=== PATIENT | male | born 1950 | race American Indian/Alaskan Native ===

== ENCOUNTER 2017-04-30 00:28 | Emergency (ER) | payer MEDICARE ==
[2017-04-30 02:59] LABS: Bilirubin,Urine NEG (Negative); Blood,Urine LG (Negative); Ketones,Urine NEG (Negative); Leukocyte Esterase,Urine TR (Negative); Mucus,Urine 1+ /HPF; Nitrite,Urine NEG (Negative); Urobilinogen,Urine < 2.0 mg/dL (<2.0)
[2017-04-30 03:01] LABS: RBC,Urine > 182.0 /HPF (0.0-6.0)
--- NOTE | 2017-04-30 03:22 | Emergency Department Report ---
ED Male HPI - General Chief complaint: Abdominal Pain Stated complaint: URINARY RETENTION Time Seen by Provider: 04/30/17 03:16 Source: patient Mode of arrival: Ambulatory Limitations: No Limitations - History of Present Illness -: hour(s) (10) Location: abdomen (SUPRAPUBIC) Severity scale (0 -10): 4 Quality: aching, dull Consistency: constant Improves with: urination recent surgery (TURP) denies: fever, nausea/vomiting - Related Data Sexually active: Yes Home Medications Medication Instructions Recorded Confirmed Last Taken Amlodipine Besylate/Benazepril 1 each PO DAILY 04/21/17 04/23/17 04/23/17 09:00 [Amlodipine-Benazepril 10-20 mg] Rosuvastatin (Nf) [Crestor] 10 mg PO QHS 04/21/17 04/21/17 04/22/17 Previous Rx's Medication Instructions Recorded Last Taken Type Tamsulosin [Flomax] 0.4 mg PO DAILY #7 capsule 04/30/17 Unknown Rx Allergies Allergy/AdvReac Type Severity Reaction Status Date / Time latex Allergy blisters Verified 04/21/17 08:59 ED Review of Systems ROS: Stated complaint: URINARY RETENTION Other details as noted in HPI ED Past Medical Hx - Past Medical History Previous Medical History?: Yes Hx Hypertension: Yes () Hx Diabetes: Yes ("BOARDERLINE" - NO MEDS) Hx GERD: Yes Hx HIV: No Additional medical history: BPH, High cholesterol, Gastric Ulcer - Surgical History Past Surgical History?: Yes Additional Surgical History: TURP - Social History Smoking Status: Former Smoker Substance Use Type: None - Medications Home Medications: Home Medications Medication Instructions Recorded Confirmed Last Taken Type Amlodipine Besylate/Benazepril 1 each PO DAILY 04/21/17 04/23/17 04/23/17 09:00 History [Amlodipine-Benazepril 10-20 mg] Rosuvastatin (Nf) [Crestor] 10 mg PO QHS 04/21/17 04/21/17 04/22/17 History Tamsulosin [Flomax] 0.4 mg PO DAILY #7 capsule 04/30/17 Unknown Rx ED Physical Exam - General Limitations: No Limitations General appearance: alert, in distress - Head Head exam: Present: atraumatic, normocephalic - Eye Eye exam: Present: normal appearance, EOMI - ENT ENT exam: Present: mucous membranes moist - Neck Neck exam: Present: normal inspection - Respiratory Respiratory exam: Present: normal lung sounds bilaterally. Absent: respiratory distress - Cardiovascular Cardiovascular Exam: Present: regular rate, normal rhythm. Absent: systolic murmur, diastolic murmur, rubs, gallop - GI/Abdominal GI/Abdominal exam: Present: soft, distended, tenderness (OVER BLADDER), normal bowel sounds, hernia (UMBILICAL) - Rectal Rectal exam: Present: deferred - Extremities Exam Extremities exam: Present: normal inspection, full ROM - Back Exam Back exam: Present: normal inspection, full ROM - Neurological Exam Neurological exam: Present: alert, oriented X3, CN II-XII intact - Psychiatric Psychiatric exam: Present: normal affect, normal mood - Skin Skin exam: Present: warm, dry, intact, normal color. Absent: rash ED Course Vital Signs 04/30/17 04/30/17 00:34 02:03 Temperature 97.1 F L 98.2 F Pulse Rate 119 H 98 H Respiratory 20 16 Rate Blood Pressure 110/82 Blood Pressure 142/97 110/82 [Right] O2 Sat by Pulse 97 94 Oximetry Critical care attestation.: If time is entered above; I have spent that time in minutes in the direct care of this critically ill patient, excluding procedure time. ED Disposition Clinical Impression: Acute urinary obstruction, Abdominal pain in male Disposition: -01 TO HOME OR SELFCARE Is pt being admited?: No Does the pt Need Aspirin: No Condition: Stable Instructions: Urinary Retention in Men (ED) Prescriptions: Tamsulosin [Flomax] 0.4 mg PO DAILY #7 capsule Referrals: MIL DECKER MD [Primary Care Provider] - 3-5 Days Time of Disposition: 03:26
[2017-04-30 04:06] VITALS: BP 114/80
== END 2017-04-30 04:04 | disposition home or self-care (01) ==
LOC: ED 00:28
DX: N13.9 Obstructive and reflux uropathy, unspecified (principal); R10.9 Unspecified abdominal pain; I10 Essential (primary) hypertension; E11.9 Type 2 diabetes mellitus without complications; K21.9 Gastro-esophageal reflux disease without esophagitis; E78.00 Pure hypercholesterolemia, unspecified; F41.9 Anxiety disorder, unspecified; Z91.040 Latex allergy status
CPT/HCPCS: 51702; 81001; 99283